=== PATIENT | male | born 2000 | race Caucasian/White ===

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

== ENCOUNTER 2022-04-02 16:50 | Emergency (ER) | payer SELFPAY ==
[2022-04-02] MEDS ORDERED: Amoxicillin/Clavulanate K 875-125 MG Tab PO ONE (19:08)
[2022-04-02] MEDS ORDERED: Diphtheria,Pertussis(Acell),Tetanus Vaccine 0.5 ML Syringe IM ONE (19:45)
== END 2022-04-02 20:10 | disposition home or self-care (01) ==
LOC: JD.ED 16:50
DX: S61.452A Open bite of left hand, initial encounter (principal); S61.451A Open bite of right hand, initial encounter; W54.0XXA Bitten by dog, initial encounter; Z23 Encounter for immunization
CPT/HCPCS: 73120; 90471; 90715; 99283; A9270